=== PATIENT | male | born 1970 | race Caucasian/White ===

== ENCOUNTER 2021-05-21 15:48 | Emergency (ER) | payer OTHER, SELFPAY ==
[2021-05-21 15:55] VITALS: BP 160/114; PULSE 88; RESP 16; TEMP 36.4; O2SAT 97; BMI 27.8
[2021-05-21 16:14] VITALS: BP 152/94; PULSE 93; RESP 16; O2SAT 98
--- NOTE | 2021-05-21 16:38 | CTR_ITS ---
PROCEDURE INFORMATION: Exam: CT Abdomen And Pelvis Without Contrast Exam date and time: 05/21/2021 4:38 PM Age: 50 years old Clinical indication: Abdominal pain; Flank; Left; Additional info: Flank pain, left, luq abd pain TECHNIQUE: Imaging protocol: Computed tomography of the abdomen and pelvis without contrast. Radiation optimization: All CT scans at this facility use at least one of these dose optimization techniques: automated exposure control; mA and/or kV adjustment per patient size (includes targeted exams where dose is matched to clinical indication); or iterative reconstruction. COMPARISON: No relevant prior studies available. RADIATION DOSE METRICS: Total DLP (mGy-cm): 1768.7 FINDINGS: Limitations: Evaluation of solid organs and vasculature is limited without intravenous contrast. This is standard protocol for evaluation of possible urolithiasis. Lungs: There is linear scarring in the left lower lobe. Pleural spaces: No pleural effusion. Heart: Visualized portions of the heart are mildly enlarged. Liver: Two hypodense foci in the liver that cannot be further characterized on the current examination. The largest measures 8.2 mm (series 2, image 40). Gallbladder and bile ducts: Single gallstone in the gallbladder. No gallbladder wall thickening. No biliary ductal dilatation. Pancreas: The pancreas is unremarkable. No pancreatic ductal dilatation. Spleen: The spleen is unremarkable. Adrenal glands: The right and left adrenal glands are unremarkable. Kidneys and ureters: The right and left kidneys are unremarkable. The right and left ureters are unremarkable. Stomach and bowel: Increased fecal content in the colon. Scattered diverticula in the colon. No evidence for diverticulitis. The small bowel is unremarkable. Large hiatal hernia. Appendix: The appendix is visualized and is unremarkable. No findings to suggest acute appendicitis. Intraperitoneal space: No free intraperitoneal air. No ascites. No loculated fluid collections to suggest an abscess. Vasculature: Minimal atherosclerotic changes in the visualized arteries. No evidence for aortic aneurysm. Lymph nodes: No lymphadenopathy. Urinary bladder: Diffuse, mild wall thickening of the bladder. Reproductive: The prostate gland is mildly enlarged. Nonspecific parenchymal calcifications in the prostate gland. Bones/joints: [id number] multilevel degenerative changes in the visualized spine. Soft tissues: No acute abnormality in the extra-abdominal soft tissues. CT/CT kidney stone 83112 IMPRESSION: 1. Diffuse, mild wall thickening of the bladder. In the correct clinical setting, this may suggest cystitis. Recommend correlation with laboratory findings. Alternatively, this may be secondary to chronic outlet obstruction. 2. Two hypodense foci in the liver that cannot be further characterized on the current examination. In a low-risk patient, this is most likely to be benign and no further follow-up is recommended. In a high-risk patient, follow-up MRI in 3-6 months is recommended (or earlier if warranted by the patient's specific clinical circumstances). (Reference: Mirna) 3. Cholelithiasis. 4. Scattered diverticula in the colon. No evidence for diverticulitis. 5. Large hiatal hernia. 6. Incidental/nonacute findings are listed in the report. REFERENCES: Mirna RAYMUNDO, et al. Management of Incidental Liver Lesions on CT: A White Paper of the ACR Incidental Findings Committee. J Am [facility]iol. 2017;14(11):7869-4120.
--- NOTE | 2021-05-21 16:39 | W.ED.ABDPA2 ---
Documented by User: Jeff Ho MD 05/21/21 17:52 HPI - Abdominal Pain General: Chief Complaint: Abdominal Pain Stated Complaint: abdomen pain and back pain Time Seen by Provider: 05/21/21 16:12 Source: patient and family Mode of arrival: ambulatory Limitations: no limitations History of Present Illness: Patient with complaints of left upper quadrant left flank pain since yesterday evening. Patient has been having fairly constant pain but states the pain waxes and wanes. States the pain is more of a spasm. Denies any rash. He denies any fever. He denies any nausea vomiting diarrhea constipation. He denies any dysuria or hematuria. Possible history includes iron deficiency anemia, GERD, restless leg syndrome. Medications include iron supplement, medication for stomach, restless leg medication. He does not know the names of his medications. He denies any allergies to medications. He denies any surgical history. Denies any tobacco or alcohol use. 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 Location: LUQ and L flank Severity: moderate Quality: cramping Exacerbating factors: nothing Relieving factors: nothing Associated Symptoms: Denies chills, dysuria, fever(s), hematochezia, hematemesis, melena, nausea and vomiting Treatments prior to arrival: other (None) Review of Systems Const: Denies: fever(s) or chills Eyes: Denies: change in vision ENMT: Denies: throat pain Card: Denies: chest pain or palpitations Resp: Denies: dyspnea or wheezing GI: Reports: abdominal pain; Denies: nausea, vomiting, hematemesis, hematochezia or melena : Reports: flank pain; Denies: difficulty urinating, dysuria, urinary frequency or urinary urgency Musc: Denies: neck pain or back pain Skin/Breast: Denies: rash, pruritus or erythema Neuro: Denies: headache(s) or numbness in extremities Psych: Denies: anxiety Schuyler/Lymph: Denies: enlarged lymph nodes Physical Exam Const: COMMON NORMALS: no acute distress, patient oriented x3, no limitations and well nourished GENERAL APPEARANCE: cooperative HENMT: COMMON NORMALS: normocephalic and atraumatic HEAD & SCALP: normocephalic and atraumatic FACE & SINUS: normal facial exam Eye: COMMON NORMALS: EOMs intact bilaterally Neck/C-Spine: COMMON NORMALS: full ROM, no lymphadenopathy, supple and no meningeal signs GENERAL: Yes normal visual inspection Lymph: LYMPHATIC: no lymphadenopathy noted Chest: COMMONS NORMALS: normal inspection of the chest and normal palpation of entire chest wall CHEST: No Ecchymosis present and No rash Resp: COMMON NORMALS: normal respiratory effort, No retractions and clear to auscultation bilaterally EFFORT & INSPECTION: No respiratory distress AUSCULTATION: clear to auscultation bilaterally Cardio: COMMON NORMALS: regular rate, regular rhythm and Peripheral pulses 2+ throughout JUGULAR VENOUS DISTENTION: no JVD RATE: regular rate RHYTHM: regular rhythm PERIPHERAL PULSES: Peripheral pulses 2+ throughout GI: COMMON NORMALS: Normal to inspection, nondistended, normoactive bowel sounds present and Soft to palpation PALPATION: Yes Soft to palpation and Yes Tenderness to palpation present (GI) (Mild left upper quadrant abdominal pain) : BLADDER/KIDNEY EXAM: Yes CVA tenderness (Moderate; no rash) Back/Pelvis: GENERAL BACK: Yes CVA tenderness (Moderate; no rash) CVA tenderness: left Extremity: COMMON NORMALS: normal to inspection, full ROM and capillary refill normal Neuro: COMMON NORMALS: patient oriented x3, CN's II-XII intact bilaterally, no focal motor deficits and no sensory deficits noted MENINGEAL SIGNS: Yes no meningeal signs Psych: COMMON NORMALS: mental status grossly normal and Normal thought process present THOUGHT PROCESS: Normal thought process present Skin: COMMON NORMALS: no rashes or lesions noted and no wounds GENERAL SKIN EXAM: no rashes or lesions noted Course Vital Signs: Vital signs: Vital Signs Temperature 97.5 F L 05/21/21 15:55 Pulse Rate 78 05/21/21 18:43 Respiratory Rate 16 05/21/21 18:43 Blood Pressure 141/107 05/21/21 18:43 Pulse Oximetry 98 05/21/21 18:43 MDM - Abdominal Pain Medical Decision Making Differential diagnosis: Renal colic, diverticulitis Lab Data I reviewed the patient's lab results. : 05/21/21 16:12 05/21/21 16:12 Labs/Radiology: Radiology Impressions Abdomen/Pelvis CT 05/21/21 16:38 IMPRESSION: 1. Diffuse, mild wall thickening of the bladder. In the correct clinical setting, this may suggest cystitis. Recommend correlation with laboratory findings. Alternatively, this may be secondary to chronic outlet obstruction. 2. Two hypodense foci in the liver that cannot be further characterized on the current examination. In a low-risk patient, this is most likely to be benign and no further follow-up is recommended. In a high-risk patient, follow-up MRI in 3-6 months is recommended (or earlier if warranted by the patient's specific clinical circumstances). (Reference: Mirna) 3. Cholelithiasis. 4. Scattered diverticula in the colon. No evidence for diverticulitis. 5. Large hiatal hernia. 6. Incidental/nonacute findings are listed in the report. REFERENCES: Mirna RAYMUNDO, et al. Management of Incidental Liver Lesions on CT: A White Paper of the ACR Incidental Findings Committee. J Am [facility]iol. 2017;14(11):8248-6639. Laboratory Results WBC 10.3 10^3/uL (4.0-10.0) H 05/21/21 16:12 RBC 5.45 10^6/uL (4.1-5.3) H 05/21/21 16:12 Hgb 15.5 g/dL (11.7-16.6) 05/21/21 16:12 Hct 48.1 % (42.0-52.0) 05/21/21 16:12 MCV 88.3 fl (80-94) 05/21/21 16:12 MCH 28.4 pg (28.0-34.0) 05/21/21 16:12 MCHC 32.2 g/dL (30.0-36.0) 05/21/21 16:12 RDW 13.2 % (12.1-15.1) 05/21/21 16:12 Plt Count 187 10^3/cmm (130-400) 05/21/21 16:12 MPV 12.1 fL (7.4-10.4) H 05/21/21 16:12 Neut % (Auto) 69.1 % 05/21/21 16:12 Lymph % (Auto) 18.1 % 05/21/21 16:12 [place] % (Auto) 8.8 % 05/21/21 16:12 Eos % (Auto) 2.7 % 05/21/21 16:12 Baso % (Auto) 0.9 % 05/21/21 16:12 Neut # (Auto) 7.13 10^3/uL (1.8-7.7) 05/21/21 16:12 Lymph # (Auto) 1.9 10^3/uL (0.8-4.8) 05/21/21 16:12 [place] # (Auto) 0.9 10^3/uL (0.2-0.9) 05/21/21 16:12 Eos # (Auto) 0.3 10^3/uL (0.0-0.8) 05/21/21 16:12 Baso # (Auto) 0.1 10^3/uL (0.0-0.1) 05/21/21 16:12 Nucleated RBC % (auto) 0 % 05/21/21 16:12 Nucleated RBCs # 0.0 /100WBC 05/21/21 16:12 Sodium 136 mmol/L (136-145) 05/21/21 16:12 Potassium 3.9 mmol/L (3.5-5.1) 05/21/21 16:12 Chloride 104 mmol/L (98-107) 05/21/21 16:12 Carbon Dioxide 22 mmol/L (22-29) 05/21/21 16:12 Anion Gap 13.9 (5-19) 05/21/21 16:12 BUN 13 mg/dL (6-20) 05/21/21 16:12 Creatinine 0.8 mg/dL (0.7-1.2) 05/21/21 16:12 GFR Calculation 102.3 mL/min (90-130) 05/21/21 16:12 Glucose 91 mg/dL (65-115) 05/21/21 16:12 Calculated Osmolality 282 mOsm/kg (285-295) L 05/21/21 16:12 Calcium 8.8 mg/dL (8.5-10.5) 05/21/21 16:12 Urine Color Yellow (Yellow) 05/21/21 17:08 Urine Appearance Clear (CLEAR) 05/21/21 17:08 Urine pH 5 (5-7) 05/21/21 17:08 Ur Specific [place] 1.030 (1.005-1.030) 05/21/21 17:08 Urine Protein Neg (Negative) 05/21/21 17:08 Urine Glucose (UA) Norm (Normal) 05/21/21 17:08 Urine Ketones Negative (Negative) 05/21/21 17:08 Urine Blood 2+ (Negative) H 05/21/21 17:08 Urine Nitrate Negative (Negative) 05/21/21 17:08 Urine Bilirubin 1+ (Negative) H 05/21/21 17:08 Urine Urobilinogen 1 mg/dL (Negative) H 05/21/21 17:08 Ur Leukocyte Esterase Negative (Negative) 05/21/21 17:08 Urine RBC Rare /hpf (0-2) 05/21/21 17:08 Urine WBC Rare /hpf (0-5) 05/21/21 17:08 Ur Squamous Epith Cells None /hpf (0-5) 05/21/21 17:08 Amorphous Sediment Not Reportable 05/21/21 17:08 Urine Bacteria Trace /hpf (NONE) 05/21/21 17:08 Urine Mucus 2+ /hpf 05/21/21 17:08 EKG Data EKG 1: I personally reviewed and interpreted this EKG as follows: EKG interpretation date: 05/21/21 EKG interpretation time: 16:14 Prior EKG tracings: not available for review Interpretation: Normal sinus rhythm with a heart rate of 81. Normal OH interval, normal QRS, normal QT interval, normal ST segment. Normal axis. Impression normal EKG. Other Data 1751: CT scan and urinalysis are pending. Dr. Mabry will assume care at shift change. Discharge Plan Discharge Patient Disposition: Home Clinical Impression: Abdominal pain, Hematuria Condition: Stable Prescriptions: New cephalexin 500 mg capsule 500 mg PO TID 7 Days Qty: 21 0RF Discharge Orders: Discharge ED (Routine); Ordered 05/21/21 Ordered By: Ed Mabry Referrals: Stu Rosado MD [Physician] - 1-3 days Discharge Diet: Advance as tolerated Discharge Activity: Resume usual activity Patient Instructions: Hematuria (ED), Abdominal Pain (ED) Coding Level of Care Code ED Imaging Engineer for Chg Fwd Exam Comprehensive Documented by User: Ed aMbry MD 05/21/21 18:45 HPI - Abdominal Pain General: Chief Complaint: Abdominal Pain Stated Complaint: abdomen pain and back pain Time Seen by Provider: 05/21/21 16:12 Course Vital Signs: Vital signs: Vital Signs Temperature 97.5 F L 05/21/21 15:55 Pulse Rate 78 05/21/21 18:43 Respiratory Rate 16 05/21/21 18:43 Blood Pressure 141/107 05/21/21 18:43 Pulse Oximetry 98 05/21/21 18:43 MDM - Abdominal Pain Medical Decision Making Differential diagnosis: Renal colic, diverticulitis Patient presents here originally with flank pain sounds like renal colic he is currently completely pain-free. He did have some hematuria CT shows some thickened bladder. Could have recently passed a stone versus a UTI will start him on antibiotics getting follow-up with urology Dr. Rosado he is return if worsening. Lab Data : 05/21/21 16:12 05/21/21 16:12 Labs/Radiology: Radiology Impressions Abdomen/Pelvis CT 05/21/21 16:38 IMPRESSION: 1. Diffuse, mild wall thickening of the bladder. In the correct clinical setting, this may suggest cystitis. Recommend correlation with laboratory findings. Alternatively, this may be secondary to chronic outlet obstruction. 2. Two hypodense foci in the liver that cannot be further characterized on the current examination. In a low-risk patient, this is most likely to be benign and no further follow-up is recommended. In a high-risk patient, follow-up MRI in 3-6 months is recommended (or earlier if warranted by the patient's specific clinical circumstances). (Reference: Mirna) 3. Cholelithiasis. 4. Scattered diverticula in the colon. No evidence for diverticulitis. 5. Large hiatal hernia. 6. Incidental/nonacute findings are listed in the report. REFERENCES: Mirna RAYMUNDO, et al. Management of Incidental Liver Lesions on CT: A White Paper of the ACR Incidental Findings Committee. J Am [facility] [facility]iol. 2017;14(11):8640-1473. Laboratory Results WBC 10.3 10^3/uL (4.0-10.0) H 05/21/21 16:12 RBC 5.45 10^6/uL (4.1-5.3) H 05/21/21 16:12 Hgb 15.5 g/dL (11.7-16.6) 05/21/21 16:12 Hct 48.1 % (42.0-52.0) 05/21/21 16:12 MCV 88.3 fl (80-94) 05/21/21 16:12 MCH 28.4 pg (28.0-34.0) 05/21/21 16:12 MCHC 32.2 g/dL (30.0-36.0) 05/21/21 16:12 RDW 13.2 % (12.1-15.1) 05/21/21 16:12 Plt Count 187 10^3/cmm (130-400) 05/21/21 16:12 MPV 12.1 fL (7.4-10.4) H 05/21/21 16:12 Neut % (Auto) 69.1 % 05/21/21 16:12 Lymph % (Auto) 18.1 % 05/21/21 16:12 Buchanan % (Auto) 8.8 % 05/21/21 16:12 Eos % (Auto) 2.7 % 05/21/21 16:12 Baso % (Auto) 0.9 % 05/21/21 16:12 Neut # (Auto) 7.13 10^3/uL (1.8-7.7) 05/21/21 16:12 Lymph # (Auto) 1.9 10^3/uL (0.8-4.8) 05/21/21 16:12 [place] # (Auto) 0.9 10^3/uL (0.2-0.9) 05/21/21 16:12 Eos # (Auto) 0.3 10^3/uL (0.0-0.8) 05/21/21 16:12 Baso # (Auto) 0.1 10^3/uL (0.0-0.1) 05/21/21 16:12 Nucleated RBC % (auto) 0 % 05/21/21 16:12 Nucleated RBCs # 0.0 /100WBC 05/21/21 16:12 Sodium 136 mmol/L (136-145) 05/21/21 16:12 Potassium 3.9 mmol/L (3.5-5.1) 05/21/21 16:12 Chloride 104 mmol/L (98-107) 05/21/21 16:12 Carbon Dioxide 22 mmol/L (22-29) 05/21/21 16:12 Anion Gap 13.9 (5-19) 05/21/21 16:12 BUN 13 mg/dL (6-20) 05/21/21 16:12 Creatinine 0.8 mg/dL (0.7-1.2) 05/21/21 16:12 GFR Calculation 102.3 mL/min (90-130) 05/21/21 16:12 Glucose 91 mg/dL (65-115) 05/21/21 16:12 Calculated Osmolality 282 mOsm/kg (285-295) L 05/21/21 16:12 Calcium 8.8 mg/dL (8.5-10.5) 05/21/21 16:12 Urine Color Yellow (Yellow) 05/21/21 17:08 Urine Appearance Clear (CLEAR) 05/21/21 17:08 Urine pH 5 (5-7) 05/21/21 17:08 Ur Specific [place] 1.030 (1.005-1.030) 05/21/21 17:08 Urine Protein Neg (Negative) 05/21/21 17:08 Urine Glucose (UA) Norm (Normal) 05/21/21 17:08 Urine Ketones Negative (Negative) 05/21/21 17:08 Urine Blood 2+ (Negative) H 05/21/21 17:08 Urine Nitrate Negative (Negative) 05/21/21 17:08 Urine Bilirubin 1+ (Negative) H 05/21/21 17:08 Urine Urobilinogen 1 mg/dL (Negative) H 05/21/21 17:08 Ur Leukocyte Esterase Negative (Negative) 05/21/21 17:08 Urine RBC Rare /hpf (0-2) 05/21/21 17:08 Urine WBC Rare /hpf (0-5) 05/21/21 17:08 Ur Squamous Epith Cells None /hpf (0-5) 05/21/21 17:08 Amorphous Sediment Not Reportable 05/21/21 17:08 Urine Bacteria Trace /hpf (NONE) 05/21/21 17:08 Urine Mucus 2+ /hpf 05/21/21 17:08 Discharge Plan Discharge Patient Disposition: Home Clinical Impression: Abdominal pain, Hematuria Condition: Stable Prescriptions: New cephalexin 500 mg capsule 500 mg PO TID 7 Days Qty: 21 0RF Discharge Orders: Discharge ED (Routine); Ordered 05/21/21 Ordered By: Ed Mabry Referrals: Stu Rosado MD [Physician] - 1-3 days Discharge Diet: Advance as tolerated Discharge Activity: Resume usual activity Patient Instructions: Hematuria (ED), Abdominal Pain (ED) Coding Level of Care Code ED Imaging Engineer for Chg Fwd Exam Comprehensive
[2021-05-21] MEDS: ketorolac 30 mg/mL INJ 15 MG IVP (16:44)
[2021-05-21 16:45] VITALS: BP 141/107; PULSE 78; RESP 18; O2SAT 96
[2021-05-21 16:45] LABS: Basophils # 0.1 10^3/uL (0.0-0.1); Basophils % 0.9 %; Eosinophils # 0.3 10^3/uL (0.0-0.8); Eosinophils % 2.7 %; Hematocrit 48.1 % (42.0-52.0); Hemoglobin 15.5 g/dL (11.7-16.6); Lymphocytes # 1.9 10^3/uL (0.8-4.8); Lymphocytes % 18.1 %; Mean Corpuscular HGB Conc 32.2 g/dL (30.0-36.0); Mean Corpuscular Hemoglobin 28.4 pg (28.0-34.0); Mean Corpuscular Volume 88.3 fl (80-94); Mean Platelet Volume 12.1 fL (7.4-10.4); Monocytes # 0.9 10^3/uL (0.2-0.9); Monocytes % 8.8 %; Neutrophils # 7.13 10^3/uL (1.8-7.7); Neutrophils % 69.1 %; Nucleated Red Blood Cells % 0 %; Platelet Count 187 10^3/cmm (130-400); Red Blood Count 5.45 10^6/uL (4.1-5.3); Red Cell Distribution Width 13.2 % (12.1-15.1); White Blood Count 10.3 10^3/uL (4.0-10.0)
--- NOTE | 2021-05-21 16:57 | ECG_ITS ---
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 Measurements Intervals [place] Rate: 81 P: 50 IN: 175 QRS: 17 QRSD: 98 T: 0 QT: 368 QTc: 429 Interpretive Statements SINUS RHYTHM NONSPECIFIC T-WAVE ABNORMALITY No previous ECG available for comparison Electronically Signed On 05-22-2021 12:13:28 MACHINIST SUPERVISOR OUTSIDE by Zi Massey M.D. [id number] [email or web address]
[2021-05-21 17:00] LABS: Anion Gap 13.9 (5-19); Blood Urea Nitrogen 13 mg/dL (6-20); Calcium 8.8 mg/dL (8.5-10.5); Carbon Dioxide 22 mmol/L (22-29); Chloride 104 mmol/L (98-107); Creatinine Clr Calc Pharmacy 127.2925; Glomerular Filtration Rate 102.3 mL/min (90-130); Glucose 91 mg/dL (65-115); Osmolality Calculated 282 mOsm/kg (285-295); Potassium 3.9 mmol/L (3.5-5.1); Sodium 136 mmol/L (136-145)
[2021-05-21 17:11] VITALS: BP 141/107; PULSE 78; RESP 14; O2SAT 98
[2021-05-21 17:50] LABS: Glucose Urine UA Norm (Normal); Ketones Urine Negative (Negative); Protein Urine Neg (Negative); Urine Appearance Clear (CLEAR); Urine Color Yellow (Yellow); pH Urine 5 (5-7)
[2021-05-21 17:51] LABS: Add Urine Culture? No; Bacteria Urine TRACE /hpf; Bilirubin Urine 1+ (Negative); Blood Urine 2+ (Negative); Leukocyte Esterase Urine Negative (Negative); Mucus Urine 2+ /hpf; Nitrate Urine Negative (Negative); RBC Urine RARE /hpf (0-2); Urobilinogen Urine 1 mg/dL (Negative); WBC Urine RARE /hpf (0-5)
[2021-05-21 18:43] VITALS: BP 141/107; PULSE 78; RESP 16; O2SAT 98
[2021-05-21 18:59] VITALS: BP 140/99; PULSE 81; RESP 16; O2SAT 98
== END 2021-05-21 19:01 | disposition home or self-care (01) ==
PROVIDERS: Family Medicine; Emergency Provider Emergency Medicine
DX: R10.9 Unspecified abdominal pain (principal); R31.9 Hematuria, unspecified
CPT/HCPCS: 74176; 80048; 81001; 85025; 93005; 96374; 99284; J1885